=== PATIENT | female | born 1955 | race African-American/Black ===

== ENCOUNTER 2025-01-07 19:31 | Emergency (ER) | payer MEDICARE ==
[~2025-01-07] VITALS: Ht 165.1 cm; Wt 70.0 kg
[2025-01-07 20:00] VITALS: O2SAT 88
[2025-01-07] MEDS: KETOROLAC 30MG/ML VIAL IM ONE (22:00)
[2025-01-07 22:31] LABS: CLARITY URINE CLEAR (CLEAR); COLOR URINE YELLOW (YELLOW); GLUCOSE URINE NEGATIVE (NEGATIVE); KETONES URINE NEGATIVE (NEGATIVE); LEUKOCYTE ESTERASE URINE 1+ (NEGATIVE); NITRITE URINE NEGATIVE (NEGATIVE); OCCULT BLOOD URINE TRACE (NEGATIVE); PH URINE 6.0 (4.5-8.0); PROTEIN URINE NEGATIVE (NEGATIVE); SPECIFIC GRAVITY URINE 1.021 (1.005-1.030); UROBILINOGEN URINE 0.2 E.U./dL (0.2-1.0)
[2025-01-07 22:43] LABS: BACTERIA URINE TRACE; SQUAMOUS EPITHELIAL CELL URINE FEW /lpf (RARE/1+)
[2025-01-07] MEDS: CYCLOBENZAPRINE 10MG TABLET PO ONE (22:58)
[2025-01-07] MEDS ORDERED: T3 PO (22:59)
[2025-01-07] MEDS ORDERED: CEPH500C2 MT (22:59)
[2025-01-07 23:25] VITALS: BP 163/104; PULSE 80; RESP 16; TEMP 36.9; O2SAT 99
== END 2025-01-07 23:28 | disposition home or self-care (01) ==
LOC: ER 19:31
DX: K40.20 Bilateral inguinal hernia, without obstruction or gangrene, not specified as recurrent (principal); R10.31 Right lower quadrant pain; R82.71 Bacteriuria; I10 Essential (primary) hypertension; J45.909 Unspecified asthma, uncomplicated; Z79.899 Other long term (current) drug therapy
CPT/HCPCS: 72192; 81003; 87210; 99284